=== PATIENT | female | born 1950 | race Caucasian/White ===

== ENCOUNTER 2016-06-03 10:25 | Day surgery (SDC) | payer MEDICARE, BC ==
[~2016-06-03 10:25] MED LIST: FENTANYL CITRATE 50 MCG/ML SOL ONE; LIDOCAINE HCL 1% MPF SOL ONE; PROPOFOL 10 MG/ML EMU IV ONE; ROCURONIUM BROMIDE 10 MG/ML SOL IV ONE; SUCCINYLCHOLINE CHLORIDE 20 MG/ML SOL IV ONE
[2016-06-03] MEDS ORDERED: BUPIVACAINE LIPOSOME 20 ML SUS ONE (10:59)
[2016-06-03] MEDS ORDERED: MORPHINE SULFATE 10 MG/ML SOL ONE (11:53)
[2016-06-03 14:50] VITALS: BP 154/78; PULSE 88; RESP 14; TEMP 97.2; O2SAT 94
== END 2016-06-03 15:20 | disposition home or self-care (01) | DRG 812 ==
LOC: SURG 10:25
PROVIDERS: ATTEND Surgery
DX: D50.0 Iron deficiency anemia secondary to blood loss (chronic) (principal); K20.9 Esophagitis, unspecified; K64.8 Other hemorrhoids
CPT/HCPCS: J0330; J2001; J2270; J3010; J2704